=== PATIENT | male | born 1945 | race Caucasian/White ===

== ENCOUNTER → 2017-02-18 | Outpatient (REF) | payer MEDICARE ==
[2017-02-18 12:50] LABS: ALBUMIN 3.5 GM/DL (3.2-5.2); ALBUMIN/GLOBULIN RATIO 1.13 (1.00-1.93); ALKALINE PHOSPHATASE 69 U/L (45-117); ALT/SGPT 22 U/L (12-78); ANION GAP 5 MEQ/L (8-16); AST/SGOT 15 U/L (7-37); BILIRUBIN,TOTAL 0.6 MG/DL (0.2-1.0); BLOOD UREA NITROGEN 23 MG/DL (7-18); CARBON DIOXIDE LEVEL 32 MEQ/L (21-32); CHLORIDE LEVEL 104 MEQ/L (98-107); CHOLESTEROL LEVEL 129 MG/DL (<200); CREATININE FOR GFR 1.12 MG/DL (0.70-1.30); GLOMERULAR FILTRATION RATE > 60.0 (>42); GLUCOSE, FASTING 88 MG/DL (83-110); POTASSIUM SERUM 3.3 MEQ/L (3.5-5.1); SODIUM LEVEL 141 MEQ/L (136-145); TOTAL PROTEIN 6.6 GM/DL (6.4-8.2); TRIGLYCERIDES LEVEL 71 MG/DL (<150)
== END ==
LOC: M SFHCCLAY 07:37
PROVIDERS: ATTEND Family Medicine
DX: Z00.00 Encounter for general adult medical examination without abnormal findings (principal); E78.00 Pure hypercholesterolemia, unspecified; Z12.5 Encounter for screening for malignant neoplasm of prostate
CPT/HCPCS: 80053; 80061; 84443; G0103

== ENCOUNTER → 2017-05-21 | Outpatient (REF) | payer MEDICARE ==
[2017-05-21 12:21] LABS: PSA SCREENING 4.62 NG/ML (< 4.0)
== END ==
LOC: M SFHCCLAY 07:35
DX: R97.20 Elevated prostate specific antigen [PSA] (principal)
CPT/HCPCS: G0103

== ENCOUNTER → 2018-03-25 | Outpatient (REF) | payer MEDICARE ==
[2018-03-25 11:59] LABS: ALBUMIN 3.5 GM/DL (3.2-5.2); ALT/SGPT 21 U/L (12-78); BILIRUBIN,TOTAL 0.5 MG/DL (0.2-1.0); BLOOD UREA NITROGEN 21 MG/DL (7-18); CALCIUM LEVEL 8.8 MG/DL (8.8-10.2); CARBON DIOXIDE LEVEL 30 MEQ/L (21-32); CHLORIDE LEVEL 104 MEQ/L (98-107); CHOLESTEROL LEVEL 136 MG/DL (<200); CHOLESTEROL RISK RATIO 3.487 (<5); GLOMERULAR FILTRATION RATE > 60.0 (>42); GLUCOSE, FASTING 96 MG/DL (70-100); HDL CHOLESTEROL 39 MG/DL (>40); LDL CHOLESTEROL 83 MG/DL (<100); NON-HDL-C 97 MG/DL; POTASSIUM SERUM 3.4 MEQ/L (3.5-5.1); SODIUM LEVEL 139 MEQ/L (136-145); TOTAL PROTEIN 7.1 GM/DL (6.4-8.2); TRIGLYCERIDES LEVEL 69 MG/DL (<150)
== END ==
LOC: M SFHCCLAY 07:17
PROVIDERS: ATTEND Family Medicine
DX: E78.2 Mixed hyperlipidemia (principal); R97.20 Elevated prostate specific antigen [PSA]; Z00.00 Encounter for general adult medical examination without abnormal findings
CPT/HCPCS: 80053; 80061; 84443; G0103

== ENCOUNTER → 2018-04-02 | Outpatient (REF) | payer MEDICARE | LOC: M SMT 13:02 | PROVIDERS: ATTEND Nurse Practitioner Family | DX: R97.20 Elevated prostate specific antigen [PSA] (principal) ==

== ENCOUNTER → 2018-04-20 | Outpatient (CLI) | payer MEDICARE ==
--- NOTE | 2018-04-20 15:13 | REP ---
Prostate sonography: History: Elevated PSA Sonographic findings: Trans rectal prostate sonography demonstrates unremarkable seminal vesicles. Prostate gland is heterogeneously enlarged with calcifications and cystic changes noted. Glandular dimensions are measured at 4.2 x 3.5 x 5.1 cm with a calculated glandular volume of 38.6 ml. There is a 0.7 cm hypoechoic nodule on the right side of the prostate gland. Transrectal sonographic guidance provided to Dr. Pete who performed trans rectal ultrasound guided needle biopsy procedure . Electronically Signed by Vance Woodard MD 04/20/2018 03:04 P
== END ==
LOC: M SMT PRO 10:27
PROVIDERS: ATTEND Nurse Practitioner Family
DX: C61 Malignant neoplasm of prostate (principal)
CPT/HCPCS: 55700; 76872; 76942; G0416

== ENCOUNTER → 2018-05-20 | Outpatient (CLI) | payer MEDICARE ==
--- NOTE | 2018-05-21 07:11 | RADONC ---
RADIATION ONCOLOGY CONSULTATION DATE: 05/20/2018 CHART NUMBER: [id number] REFERRING PHYSICIAN: Dr. Randall Pete OTHER PHYSICIANS: Dr. Kale Zaidi DIAGNOSIS: Adenocarcinoma of the prostate, status post biopsy. STAGE: [id number], group grade 2. [place] 7, (3+4) located in the left side of the prostate with a PSA of 6.81. GROUP STAGE: IIB. ICD-10 CODE: C-61. HISTORY OF PRESENT ILLNESS: The patient is a 72-year-old male who has most recently been diagnosed as having adenocarcinoma of the prostate, [place] 7 (3+4). His prostate biopsy was performed on 04/20/2018 following a fairly marked elevation of his PSA up to 6.81. Previously his PSAs have been significantly lower in the 3-[address] Pete apparently did not feel any abnormalities on rectal examination. The tumor was staged [id number], or group stage IIB. He had a group grade of 2. His family history does not include any history of prostate cancer and the patient was not really having any urinary symptoms such as frequency, dysuria or hematuria. He had no significant obstructive symptoms. Following of the biopsy the patient was in favor of undergoing radiotherapy rather than surgery and subsequently comes to us today for radiotherapy consultation. He has an appointment to see Dr. Pete for fiduciary markers to be placed on May 25. PAST MEDICAL HEALTH: Hypertension. Hyperlipidemia. Basal cell carcinoma involving the back. Actinic keratoses. Tobacco addiction. Edema. Elevated PSA. SOCIAL HISTORY: He had a left ear lesion removed in 2009. Basal cell carcinoma removed from his back in 2004. Tonsillectomy in the . Vasectomy 1980. Bottom teeth moved in April of 2017. FAMILY HISTORY: His father is from multiple myeloma. Mother is at 91 years from hypertension. He has one brother who of renal failure. He has a son and a daughter who are alive and in fairly good health. 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 TOBACCO: He smokes one pack per day and started at 17 years of age. ALCOHOL HISTORY: Alcohol history denied. ALLERGIES: No known drug allergies. MEDICATIONS: - chlorthalidone 25 one per day - atorvastatin 20 mg one per day - quinapril 40 mg one per day - atenolol 50 mg two per day REVIEW OF SYSTEMS: HEAD: The patient denies any nausea, vomiting, headaches, focal neurologic deficit, sinusitis, dry mouth, alteration of taste. NECK: The patient denies any neck stiffness or lymphadenopathy. LUNGS: The patient denies any difficulty breathing, coughing, sputum production or hemoptysis. HEART: The patient denies any rhythmic irregularities. He has no chest pain. ABDOMEN: Denies abdominal pain or other bowel or bladder issues. GENITOURINARY (): Denies significant urinary frequency, urgency, dysuria or hematuria. NEUROLOGIC REVIEW: Denies focal, motor, neurologic deficits, seizure activity, depression. EXAMINATION FINDINGS: VITAL SIGNS: Blood pressure 138/79, oxygen saturation 95%, temperature 98.2, pulse 57, respirations 20, height 5 feet 7 inches, weight 247 pounds. HEENT: Normocephalic. EOMs intact. PERRLA. Fundi benign. LYMPHATICS: No palpable peripheral lymphadenopathy is appreciated in the cervical, supraclavicular, axillary or inguinal lymph node chains. LUNGS: Clear to auscultation and percussion. HEART: Regular without murmurs. ABDOMEN: Without evidence of hepatomegaly, masses, deep abdominal tenderness. EXTREMITIES: Without cyanosis, clubbing or edema. NEUROLOGIC EXAMINATION: Grossly physiologic and nonfocal. RECTAL EXAMINATION: No distinct abnormalities are palpable. Prostate smooth. IMPRESSION: Stage [id number], adenocarcinoma of the prostate group grade 2, PSA 6.81 and Tito 7 (3+4), group stage IIB. PLAN OF RADIOTHERAPY: Definitive. The patient is an excellent candidate for definitive local regional radiotherapy that consists of IMRT based local regional radiotherapy. He will be treated utilizing IMRT/IGRT for approximately 8-1/2 to 9 weeks. Prior to treatment delivery, localization will be accomplished upon our CT simulator and treatment portals defined by the use of multiple leaf collimators. Prior to treatment simulation, fiduciary markers are due to be placed by Dr. Pete on May 25. The indications, possible side effects as well as alternatives have been explained to the patient in detail. He understands and is willing to proceed as outlined. cc: MD Kale Mccracken MD
== END ==
LOC: M ONCR 08:55
PROVIDERS: ATTEND Radiology Radiation Oncology
DX: C61 Malignant neoplasm of prostate (principal)

== ENCOUNTER → 2018-05-25 | Outpatient (CLI) | payer MEDICARE ==
--- NOTE | 2018-05-25 13:16 | REP ---
Transrectal prostate sonography: History: Prostate cancer. Findings: Transrectal sonographic guidance is provided Dr. Pete who placed three fiducial markers. Electronically Signed by Vance Woodard MD 05/25/2018 01:08 P
== END ==
LOC: M SMT 09:09
PROVIDERS: ATTEND Urology
DX: C61 Malignant neoplasm of prostate (principal)
CPT/HCPCS: 76872; A4648

== ENCOUNTER → 2018-07-27 | Outpatient (RCR) | payer MEDICARE ==
--- NOTE | 2018-06-29 14:44 | RADONC ---
RADIATION ONCOLOGY PROGRESS NOTE DATE: 06/28/2018 CHART NUMBER: [id number] Mr. Hernandes is presently at a dose of 1440 cGy to his prostate and is tolerating treatments quite well at this point with no complaints related to his radiation therapy. He is having no urinary or bowel difficulties and no bone pain. The patient's review of systems is noncontributory. Denies nausea, vomiting, fevers, chills, night sweats, diplopia, headaches, anxiety or depression, anorexia, weight loss, visual disturbances, chest pain, urinary or bowel difficulties, bone pain, or neurological problems. PHYSICAL EXAMINATION The patient's skin is in good condition with no evidence of radiation change present. There is no moist or dry desquamation. The remainder of his physical exam remains unchanged. Mr. Hernandes is tolerating treatments quite well, and radiation will continue as scheduled.
--- NOTE | 2018-07-05 10:53 | RADONC ---
RADIATION ONCOLOGY PROGRESS NOTE: DATE: 07/05/2018 CHART NUMBER: [id number] Mr. Hernandes is presented at a dose of 2340 cGy to his prostate and is tolerating treatments quite well with no complaints related to his radiation therapy. He is having no urinary or bowel difficulties and no bone pain. REVIEW OF SYSTEMS: The patient's review of systems is noncontributory. He denies nausea, vomiting, fevers, chills, night sweats, diplopia, headaches, anxiety or depression, anorexia, weight loss, visual disturbances, chest pain, urinary or bowel difficulties, bone pain, or neurological problems. PHYSICAL EXAMINATION: The patient's skin is in excellent condition with no evidence of moist or dry desquamation. The remainder of his physical exam remains unchanged. Mr. Hernandes is tolerating treatments quite well and radiation will continue as scheduled.
--- NOTE | 2018-07-12 13:27 | RADONC ---
RADIATION ONCOLOGY PROGRESS NOTE DATE: 07/12/2018 CHART NUMBER: [id number] Mr. Hernandes with a diagnosis of adenocarcinoma of the prostate is receiving local regional radiotherapy to the prostate definitively. REVIEW OF SYSTEMS: He specifically denies any nausea, vomiting, diarrhea, dysuria, hematuria or blood per rectum. His energy level is such that he is able to maintain most day-to-day activities without any alteration of his lifestyle. Skin irritation is not an issue for him. EXAMINATION FINDINGS: The skin within the irradiated volume shows neither erythema nor desquamation. Lymphatics: No palpable peripheral lymphadenopathy is appreciated in the cervical, supraclavicular, axillary, or inguinal lymph node chains. The remainder of the physical examination is noncontributory. IMPRESSION: Tolerating therapy well. PLAN: Treatments to continue. MTDD
--- NOTE | 2018-07-21 11:12 | RADONC ---
RADIATION ONCOLOGY PROGRESS NOTE DATE: 07/20/2018 CHART #: [id number] Mr. Hernandes is presently a dose of 4140 cGy to his prostate and is tolerating treatments quite well at this point with no complaints related to his radiation therapy. He is having no urinary or bowel difficulties, except for frequent urination. He has no bone pain. REVIEW OF SYSTEMS: The patient's review of systems is positive for urinary frequency but is otherwise noncontributory. Denies nausea, vomiting, fevers, chills, night sweats, diplopia, headaches, anxiety or depression, anorexia, weight loss, visual disturbances, chest pain, urinary or bowel difficulties, bone pain, or neurological problems. PHYSICAL EXAMINATION: The patient's skin is in good condition with no evidence of radiation change present. There is no moist or dry desquamation. The remainder of his physical exam remains unchanged. Mr. Hernandes is tolerating treatments quite well and radiation will continue as scheduled.
--- NOTE | 2018-07-28 08:01 | RADONC ---
RADIATION ONCOLOGY PROGRESS NOTE: DATE: 07/26/2018 CHART NUMBER: [id number] Mr. Hernandes is presently at a dose of 4860 cGy to his prostate and is tolerating treatments quite well at this point with no complaints related to his radiation therapy other than some urinary hesitancy. REVIEW OF SYSTEMS: The patient's review of systems is positive for urinary hesitancy symptoms as well as urinary frequency but is otherwise noncontributory. He denies nausea, vomiting, fevers, chills, night sweats, diplopia, headaches, anxiety or depression, anorexia, weight loss, visual disturbances, chest pain, urinary or bowel difficulties, bone pain, or neurological problems. PHYSICAL EXAMINATION: The patient's skin is in good condition with no evidence of moist or dry desquamation. The remainder of his physical exam remains unchanged. Mr. Hernandes is tolerating treatments quite well and radiation will continue as scheduled. I asked the patient to accept a prescription for his urinary symptoms and he declined at this time.
== END ==
LOC: M ONCR 06-28 08:53
PROVIDERS: ATTEND Radiology Radiation Oncology
DX: C61 Malignant neoplasm of prostate (principal)

== ENCOUNTER 2018-08-18 09:45 | Outpatient (RCR) | payer MEDICARE ==
--- NOTE | 2018-08-02 11:26 | RADONC ---
RADIATION ONCOLOGY PROGRESS NOTE DATE: 08/02/2018 CHART NUMBER: [id number] PROGRESS NOTE Mr. Hernandes is presently at a dose of 5760 centigrade to his prostate and is tolerating treatments quite well at this point with no complaints related to his radiation therapy. He is having no urinary or bowel difficulties. No bone pain. REVIEW OF SYSTEMS: The patient's review of systems is noncontributory. Denies nausea, vomiting, fevers, chills, night sweats, diplopia, headaches, anxiety or depression, anorexia, weight loss, visual disturbances, chest pain, urinary or bowel difficulties, bone pain, or neurological problems. PHYSICAL EXAMINATION: The patient's skin is in good condition with no evidence of moist or dry desquamation. The remainder of his physical exam is unchanged. Mr. Hernandes is tolerating treatments quite well and radiation will continue as scheduled.
--- NOTE | 2018-08-09 14:00 | RADONC ---
RADIATION ONCOLOGY PROGRESS NOTE DATE: 08/09/2018 CHART NUMBER: [id number] Mr. Hernandes, with a diagnosis of adenocarcinoma of the prostate, is currently receiving local regional radiotherapy. His present dose of radiotherapy is 6660 cGy of a proposed 7920 cGy. Thus far, tolerance has been acceptable. REVIEW OF SYSTEMS: The patient specifically denies any nausea, vomiting, diarrhea, dysuria, hematuria or blood per rectum. He has some frequency. His energy level is such that he is able to maintain most day-to-day activities without any alteration of his lifestyle. Skin irritation is not reported. EXAMINATION FINDINGS: The skin within the irradiated volume looks normal without evidence of erythema and without any focal desquamation. The remainder of the physical examination is unchanged. IMPRESSION: Tolerating therapy well. PLAN: Treatments to continue. MTDD
--- NOTE | 2018-08-16 10:16 | RADONC ---
RADIATION ONCOLOGY PROGRESS NOTE DATE: 08/16/2018 CHART #: [id number] Mr. Hernandes is presently at a dose of 7560 cGy to his prostate and is tolerating treatments quite well at this point with no complaints related to his radiation therapy. He is having no significant urinary or bowel difficulties and no bone pain. REVIEW OF SYSTEMS: The patient's review of systems is noncontributory. Denies nausea, vomiting, fevers, chills, night sweats, diplopia, headaches, anxiety or depression, anorexia, weight loss, visual disturbances, chest pain, urinary or bowel difficulties, bone pain, or neurological problems. PHYSICAL EXAMINATION: The patient's skin is in good condition with no evidence of moist or dry desquamation. The remainder of his physical exam remains unchanged. Mr. Hernandes is tolerating treatments quite well and radiation will continue as scheduled.
--- NOTE | 2018-08-21 11:06 | RADONC ---
RADIATION ONCOLOGY TREATMENT SUMMARY DATE: 08/21/2018 CHART NUMBER: [id number] DIAGNOSIS: Prostate cancer. STAGE: IIB, [id number], Tito score 7 (3-4), PSA 6.81. ECOG PERFORMANCE STATUS: 0. TREATMENT SUMMARY: Mr. Hernandes is a very pleasant 72-year-old white male with the diagnosis of a [place] score 7 (3-4) adenocarcinoma of the prostate stage IIB, T1c, N0, M0 who presented to us for consideration of definitive external beam radiation therapy with IMRT/IGRT. We treated the patient to his prostate for a total dose of 7950 cGy delivered in 44 fractions of 180 cGy each over 62 elapsed days from 06/17/2018 through 08/18/2018. The patient's prostate was treated on a linear accelerator utilizing a 6 MV photon beam via IMRT/IGRT. The prostate and seminal vesicles were initially treated to a dose of 5400 cGy and we subsequently coned down to deliver an additional 2520 cGy to the prostate itself once again bringing it to a total dose of 7920 cGy. Mr. Hernandes tolerated treatments quite well with no complaints related to his radiation therapy. The patient was able to complete treatment without interruption. I have scheduled the patient to see me again in 1 month for further followup. He will also continue to be followed by his other physicians as well. cc: MD Kale Mccracken MD
== END 2018-08-27 ==
LOC: M ONCR 09:45
PROVIDERS: ATTEND Radiology Radiation Oncology
DX: C61 Malignant neoplasm of prostate (principal)

== ENCOUNTER → 2018-09-13 | Outpatient (REF) | payer MEDICARE | LOC: M LABDRAWC 11:04 | PROVIDERS: ATTEND Radiology Radiation Oncology | DX: C61 Malignant neoplasm of prostate (principal) ==

== ENCOUNTER → 2018-09-15 | Outpatient (CLI) | payer MEDICARE ==
--- NOTE | 2018-09-17 07:07 | RADONC ---
RADIATION ONCOLOGY FOLLOWUP NOTE DATE: 09/15/2018 CHART #: [id number] DIAGNOSIS: Prostate cancer. STAGE: II B, [id number], Tito score 7 (3-4), PSA 6.81. ECOG PERFORMANCE STATUS: 0. FOLLOWUP NOTE: Mr. Hernandes is a very pleasant 72-year-old white male with the diagnosis of a [place] score 7 (3-4), stage II B, T9hC1D7, adenocarcinoma of the prostate who is presenting to us today for routine followup visit 1 month post completion of external beam radiation therapy. The patient presents today reporting that he is doing quite well with no significant difficulties at this time related to his radiation therapy or disease. He does have some nocturia but that has been improving over the last 2 weeks or so. REVIEW OF SYSTEMS: The patient's review of systems is positive for his nocturia, but is otherwise noncontributory. Denies nausea, vomiting, fevers, chills, night sweats, diplopia, headaches, anxiety or depression, anorexia, weight loss, visual disturbances, chest pain, urinary or bowel difficulties, bone pain, or neurological problems. PHYSICAL EXAMINATION: The patient is a well-developed, well-nourished male in no acute distress. HEENT exam is normocephalic, atraumatic. Extraocular movements are intact. There is no palpable cervical, supraclavicular, infraclavicular, axillary, or inguinal lymphadenopathy present. Lungs are clear to auscultation and percussion. Heart has a regular rate and rhythm. Abdomen is benign with no hepatosplenomegaly, masses, or tenderness. Rectal examination reveals a normal anal sphincter tone. His prostate is smooth with no evidence of nodularity. Skeletal examination reveals no tenderness to pressure or percussion of the bony skeleton. Extremities reveal no clubbing, cyanosis, or edema. Neurologic exam is grossly intact, as is the remainder of the physical examination. ASSESSMENT: The patient is clinically ANDREA at this time and will be seen by us again in 6 months for further followup. He will also continue be followed by his other physicians as well. cc: MD Kale Mccracken MD
== END ==
LOC: M ONCR 10:26
PROVIDERS: ATTEND Radiology Radiation Oncology
DX: Z85.46 Personal history of malignant neoplasm of prostate (principal); Z92.3 Personal history of irradiation

== ENCOUNTER → 2019-01-26 | Outpatient (REF) | payer MEDICARE | LOC: M LABDRAWC 11:36 | PROVIDERS: ATTEND Radiology Radiation Oncology | DX: C61 Malignant neoplasm of prostate (principal) ==

== ENCOUNTER → 2019-02-02 | Outpatient (CLI) | payer MEDICARE ==
--- NOTE | 2019-02-02 11:42 | RADONC ---
RADIATION ONCOLOGY FOLLOWUP NOTE DATE OF SERVICE: 02/02/2019 CHART NUMBER: [id number]. DIAGNOSIS: Prostate cancer. STAGE: IIB, E9pB2T9, [place] score 7 (3 + 4), PSA 6.81. ECOG PERFORMANCE STATUS: 0. FOLLOWUP NOTE: Mr. Hernandes is a very pleasant 73-year-old man with a diagnosis of a [place] 7 (3 + 4), stage IIB, [id number], adenocarcinoma of the prostate who presents today for routine visit after having completed a course of radiotherapy ending on 08/18/2018. Since this time, he has been doing well, and his most recent PSA was 0.01. REVIEW OF SYSTEMS: He denies any nausea, vomiting, diarrhea, dysuria, hematuria, or blood per rectum. He also denies fevers, chills, night sweats, diplopia, headache, anxiety, depression, anorexia, weight loss, visual disturbances, chest pain, or other urinary or bowel difficulties, bone pain, or neurologic problems. EXAMINATION FINDINGS: The skin within the irradiated volume looks normal. There is no palpable peripheral lymphadenopathy. Lungs are clear. Heart: Regular without murmurs. Abdomen: Without evidence of hepatomegaly, masses, deep abdominal tenderness. Rectal examination reveals no perianal abnormalities. Prostate smooth with no nodularity. Skeletal system without percussive tenderness. Extremities: Without cyanosis, clubbing, or edema. Neurologic examination: Grossly physiologic. IMPRESSION: The patient is clinically ANDREA at this time with a PSA of 0.01. PLAN: We would like to see him on a p.r.n. basis, and he was instructed to return to his referring physicians as per their directions and instructions. Thank you for allowing us the opportunity of participation in the management of this very fine gentleman.
== END ==
LOC: M ONCR 10:35
PROVIDERS: ATTEND Radiology Radiation Oncology
DX: C61 Malignant neoplasm of prostate (principal)

== ENCOUNTER → 2019-04-18 | Outpatient (REF) | payer MEDICARE ==
[2019-04-18 12:05] LABS: ALBUMIN 3.4 GM/DL (3.2-5.2); ALT/SGPT 18 U/L (12-78); BILIRUBIN,TOTAL 0.6 MG/DL (0.2-1.0); BLOOD UREA NITROGEN 21 MG/DL (7-18); CALCIUM LEVEL 9.1 MG/DL (8.8-10.2); CARBON DIOXIDE LEVEL 31 MEQ/L (21-32); CHLORIDE LEVEL 102 MEQ/L (98-107); CHOLESTEROL LEVEL 130 MG/DL (<200); CHOLESTEROL RISK RATIO 3.421 (<5); CREATININE FOR GFR 1.02 MG/DL (0.70-1.30); GLOMERULAR FILTRATION RATE > 60.0 (>42); GLUCOSE, FASTING 88 MG/DL (70-100); HDL CHOLESTEROL 38 MG/DL (>40); LDL CHOLESTEROL 71 MG/DL (<100); NON-HDL-C 92 MG/DL; POTASSIUM SERUM 3.5 MEQ/L (3.5-5.1); SODIUM LEVEL 141 MEQ/L (136-145); TOTAL PROTEIN 6.8 GM/DL (6.4-8.2); TRIGLYCERIDES LEVEL 104 MG/DL (<150)
== END ==
LOC: M SFHCCLAY 08:17
PROVIDERS: ATTEND Family Medicine
DX: I10 Essential (primary) hypertension (principal); E78.00 Pure hypercholesterolemia, unspecified

== ENCOUNTER → 2019-09-16 | Outpatient (REF) | payer MEDICARE ==
[2019-09-16 12:07] LABS: ALBUMIN 3.4 GM/DL (3.2-5.2); ALT/SGPT 17 U/L (12-78); BILIRUBIN,TOTAL 0.6 MG/DL (0.2-1.0); BLOOD UREA NITROGEN 20 MG/DL (7-18); CALCIUM LEVEL 9.2 MG/DL (8.8-10.2); CARBON DIOXIDE LEVEL 31 MEQ/L (21-32); CHLORIDE LEVEL 104 MEQ/L (98-107); CREATININE FOR GFR 1.01 MG/DL (0.70-1.30); GLOMERULAR FILTRATION RATE > 60.0 (>42); GLUCOSE, FASTING 86 MG/DL (70-100); POTASSIUM SERUM 3.5 MEQ/L (3.5-5.1); PROSTATIC SPECIFIC AG MONITOR 0.04 NG/ML (< 4.00); SODIUM LEVEL 140 MEQ/L (136-145); TOTAL PROTEIN 6.8 GM/DL (6.4-8.2)
== END ==
LOC: M SFHCCLAY 07:20
PROVIDERS: ATTEND Family Medicine
DX: I10 Essential (primary) hypertension (principal); C61 Malignant neoplasm of prostate

== ENCOUNTER 2019-11-22 09:28 | Day surgery (SDC) | payer MEDICARE ==
[~2019-11-22] VITALS: Ht 170.2 cm; Wt 110.7 kg
[~2019-11-22 09:28] MED LIST: ATEN50TA2 PO; ATOR1TAB21 PO; CHLO125TA PO; QUIN40TA26 PO; TAMS1CAP17 PO
[2019-11-22] MEDS ORDERED: NS 1,000 ML IV ONE (10:30)
[2019-11-22 14:15] VITALS: BP 141/71
--- NOTE | 2019-12-07 11:30 | ROOR ---
Patient Name: Raymond Hernandes Procedure Date: 11/22/2019 1:20 PM Date of : 1945 Age: 74 Room: [facility] Gender: Male Note Status: Finalized Procedure: Colonoscopy Indications: Screening for colorectal malignant neoplasm, Last colonoscopy: May 2010 Providers: Dakota Ramirez MD Referring MD: ARLIN Isaac pa-c Requesting Provider: Medicines: Monitored Anesthesia Care Complications: No immediate complications. Procedure: Pre-Anesthesia Assessment: - Prior to the procedure, a History and Physical was performed, and patient medications and allergies were reviewed. The patient is competent. The risks and benefits of the procedure and the sedation options and risks were discussed with the patient. All questions were answered and informed consent was obtained. Patient identification and proposed procedure were verified by the physician, the nurse and the anesthesiologist in the procedure room. Mental Status Examination: alert and oriented. Prophylactic Antibiotics: The patient does not require prophylactic antibiotics. Prior Anticoagulants: The patient has taken no previous anticoagulant or antiplatelet agents. ASA Grade Assessment: III - A patient with severe systemic disease. After reviewing the risks and benefits, the patient was deemed in satisfactory condition to undergo the procedure. The anesthesia plan was to use monitored anesthesia care (MAC). Immediately prior to administration of medications, the patient was re-assessed for adequacy to receive sedatives. The heart rate, respiratory rate, oxygen saturations, blood pressure, adequacy of pulmonary ventilation, and response to care were monitored throughout the procedure. The physical status of the patient was re-assessed after the procedure. The Colonoscope was introduced through the anus and advanced to the cecum, identified by appendiceal orifice and ileocecal valve. The colonoscopy was performed without difficulty. The patient tolerated the procedure well. The quality of the bowel preparation was excellent. Findings: The perianal and digital rectal examinations were normal. Many medium-mouthed diverticula were found in the sigmoid colon and descending colon. The mucosa vascular pattern in the rectum was locally decreased. Impression: - Diverticulosis in the sigmoid colon and in the descending colon. - Decreased mucosa vascular pattern in the rectum. Changes noted consistent with prior radiation therapy. - No specimens collected. Recommendation: - Discharge patient to home. - Resume previous diet. - Continue present medications. - Repeat colonoscopy in 10 years for screening purposes. Dakota Ramirez MD Dakota Ramirez MD 11/22/2019 2:00:14 PM Number of Addenda: 0 Note Initiated On: 11/22/2019 1:20 PM Estimated Blood Loss: Estimated blood loss: none.
--- NOTE | 2019-12-20 14:56 | ECGEPIP ---
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
== END 2019-11-22 14:28 | disposition home or self-care (01) ==
LOC: M OPP 09:28
PROVIDERS: ATTEND Surgery
DX: Z12.11 Encounter for screening for malignant neoplasm of colon (principal); K57.30 Diverticulosis of large intestine without perforation or abscess without bleeding; F17.210 Nicotine dependence, cigarettes, uncomplicated; Z85.46 Personal history of malignant neoplasm of prostate; Z92.3 Personal history of irradiation; Z79.899 Other long term (current) drug therapy

== ENCOUNTER → 2020-05-02 | Outpatient (REF) | payer MEDICARE ==
[2020-05-02 11:38] LABS: BASO # 0.1 10^3/uL (0.0-0.2); BASO % 0.8 % (0.0-1.0); EOS # 0.7 10^3/uL (0.0-0.5); EOS % 6.5 % (0.0-3.0); HEMATOCRIT 43.3 % (42.0-52.0); LYMPH # 2.1 10^3/uL (1.5-5.0); LYMPH % 19.8 % (24.0-44.0); MEAN CORPUSCULAR HGB CONC 32.3 g/dl (32.0-36.5); MEAN CORPUSCULAR VOLUME 95.8 fl (80.0-96.0); MONO # 1.1 10^3/uL (0.0-0.8); MONO % 10.3 % (0.0-5.0); NEUTROPHILS # 6.6 10^3/uL (1.5-8.5); NEUTROPHILS % 62.2 % (36.0-66.0); PLATELET COUNT, AUTOMATED 294 10^3/uL (150-450); RED BLOOD COUNT 4.52 10^6/uL (4.30-6.10)
[2020-05-02 11:59] LABS: WHITE BLOOD COUNT 10.5 10^3/uL (4.0-10.0)
[2020-05-02 12:13] LABS: ALBUMIN 3.6 GM/DL (3.2-5.2); ALT/SGPT 19 U/L (12-78); BILIRUBIN,TOTAL 0.3 MG/DL (0.2-1.0); BLOOD UREA NITROGEN 26 MG/DL (7-18); CALCIUM LEVEL 9.4 MG/DL (8.8-10.2); CARBON DIOXIDE LEVEL 32 MEQ/L (21-32); CHLORIDE LEVEL 105 MEQ/L (98-107); CHOLESTEROL LEVEL 135 MG/DL (<200); CHOLESTEROL RISK RATIO 3.139 (<5); CREATININE FOR GFR 1.21 MG/DL (0.70-1.30); GLOMERULAR FILTRATION RATE > 60.0 (>42); GLUCOSE, FASTING 84 MG/DL (70-100); HDL CHOLESTEROL 43 MG/DL (>40); LDL CHOLESTEROL 79 MG/DL (<100); NON-HDL-C 92 MG/DL; POTASSIUM SERUM 3.8 MEQ/L (3.5-5.1); PROSTATIC SPECIFIC AG MONITOR 0.07 NG/ML (< 4.00); SODIUM LEVEL 142 MEQ/L (136-145); TRIGLYCERIDES LEVEL 65 MG/DL (<150)
== END ==
LOC: M SFHCCLAY 07:36
PROVIDERS: ATTEND Physician Assistant
DX: I10 Essential (primary) hypertension (principal); C61 Malignant neoplasm of prostate

== ENCOUNTER → 2021-06-19 | Outpatient (REF) | payer MEDICARE | LOC: M SFHCCLAY 08:44 | PROVIDERS: ATTEND Urology | DX: C61 Malignant neoplasm of prostate (principal) ==

== ENCOUNTER → 2021-06-21 | Outpatient (REF) | payer MEDICARE ==
[2021-06-21 11:41] LABS: BASO # 0.1 10^3/uL (0.0-0.2); BASO % 0.7 % (0.0-1.0); EOS # 0.7 10^3/uL (0.0-0.5); EOS % 6.8 % (0.0-3.0); HEMATOCRIT 43.2 % (42.0-52.0); HEMOGLOBIN 14.3 g/dl (13.5-17.5); LYMPH # 2.1 10^3/uL (1.5-5.0); LYMPH % 21.2 % (24.0-44.0); MEAN CORPUSCULAR HEMOGLOBIN 31.3 pg (27.0-33.0); MEAN CORPUSCULAR HGB CONC 33.1 g/dl (32.0-36.5); MEAN CORPUSCULAR VOLUME 94.5 fl (80.0-96.0); MONO # 0.9 10^3/uL (0.0-0.8); MONO % 9.5 % (2.0-8.0); NEUTROPHILS % 61.5 % (36.0-66.0); PLATELET COUNT, AUTOMATED 259 10^3/uL (150-450); RED BLOOD COUNT 4.57 10^6/uL (4.30-6.10); WHITE BLOOD COUNT 9.7 10^3/uL (4.0-10.0)
[2021-06-21 11:54] LABS: ALBUMIN 3.5 GM/DL (3.2-5.2); BILIRUBIN,TOTAL 0.5 MG/DL (0.2-1.0); CALCIUM LEVEL 8.9 MG/DL (8.8-10.2); CHOLESTEROL RISK RATIO 3.358 (<5); CREATININE FOR GFR 1.28 MG/DL (0.70-1.30); GLOMERULAR FILTRATION RATE 58.5 (>42); POTASSIUM SERUM 4.1 MEQ/L (3.5-5.1); TOTAL PROTEIN 6.9 GM/DL (6.4-8.2)
== END ==
LOC: M SFHCCLAY 07:33
PROVIDERS: ATTEND Nurse Practitioner Family
DX: D72.821 Monocytosis (symptomatic) (principal)

== ENCOUNTER → 2022-06-17 | Outpatient (REF) | payer MEDICARE ==
[2022-06-17 19:08] LABS: BLOOD UREA NITROGEN 28 MG/DL (9-23); CARBON DIOXIDE LEVEL 30 MMOL/L (20-31); CHLORIDE LEVEL 104 MMOL/L (98-107); CHOLESTEROL LEVEL 128 MG/DL (<200); CHOLESTEROL RISK RATIO 2.88 (<5); CREATININE FOR GFR 1.09 MG/DL (0.70-1.30); GLOMERULAR FILTRATION RATE > 60.0 (>42); GLUCOSE, FASTING 76 MG/DL (74-106); HDL CHOLESTEROL 44.3 MG/DL (>40); LDL CHOLESTEROL 68.7 MG/DL (<100); NON-HDL-C 83.7 MG/DL; POTASSIUM SERUM 3.5 MMOL/L (3.5-5.1); SODIUM LEVEL 140 MMOL/L (136-145); TRIGLYCERIDES LEVEL 75 MG/DL (<150)
== END ==
LOC: M SFHCCLAY 07:55
PROVIDERS: ATTEND Urology
DX: C61 Malignant neoplasm of prostate (principal)

== ENCOUNTER → 2023-06-22 | Outpatient (REF) | payer MEDICARE ==
[2023-06-22 12:30] LABS: BLOOD UREA NITROGEN 31 MG/DL (9-23); CALCIUM LEVEL 9.3 MG/DL (8.3-10.6); CARBON DIOXIDE LEVEL 34 MMOL/L (20-31); CHLORIDE LEVEL 104 MMOL/L (98-107); CHOLESTEROL LEVEL 126 MG/DL (<200); CHOLESTEROL RISK RATIO 3.08 (<5); CREATININE FOR GFR 1.17 MG/DL (0.70-1.30); GLOMERULAR FILTRATION RATE > 60.0 (>42); GLUCOSE, FASTING 91 MG/DL (74-106); HDL CHOLESTEROL 40.8 MG/DL (>40); LDL CHOLESTEROL 70.6 MG/DL (<100); NON-HDL-C 85.2 MG/DL; POTASSIUM SERUM 3.6 MMOL/L (3.5-5.1); PROSTATIC SPECIFIC AG MONITOR 0.08 NG/ML (< 4.00); SODIUM LEVEL 141 MMOL/L (136-145); TRIGLYCERIDES LEVEL 73 MG/DL (<150)
== END ==
LOC: M SFHCCLAY 07:26
PROVIDERS: ATTEND Nurse Practitioner Family
DX: Z85.46 Personal history of malignant neoplasm of prostate (principal); I10 Essential (primary) hypertension; E78.2 Mixed hyperlipidemia

== ENCOUNTER → 2023-06-23 | Outpatient (REF) | payer MEDICARE | LOC: M SFHCCLAY 08:54 | PROVIDERS: ATTEND Nurse Practitioner Family | DX: Z00.00 Encounter for general adult medical examination without abnormal findings (principal) ==

== ENCOUNTER → 2024-05-27 | Outpatient (REF) | payer MEDICARE ==
[2024-05-27 12:35] LABS: ALBUMIN 3.5 G/DL (3.2-5.2); ALKALINE PHOSPHATASE 72 U/L (40-129); ALT/SGPT 17 U/L (7.0-40); AST/SGOT 13 U/L (<34); BILIRUBIN,TOTAL 0.6 MG/DL (0.3-1.2); BLOOD UREA NITROGEN 24 MG/DL (9-23); CALCIUM LEVEL 9.4 MG/DL (8.3-10.6); CARBON DIOXIDE LEVEL 32 MMOL/L (20-31); CHLORIDE LEVEL 104 MMOL/L (98-107); CHOLESTEROL LEVEL 125 MG/DL (<200); CHOLESTEROL RISK RATIO 3.12 (<5); CREATININE FOR GFR 1.06 MG/DL (0.70-1.30); GLOMERULAR FILTRATION RATE > 60.0 (>42); GLUCOSE, FASTING 83 MG/DL (74-106); LDL CHOLESTEROL 65.6 MG/DL (<100); POTASSIUM SERUM 3.9 MMOL/L (3.5-5.1); PROSTATIC SPECIFIC AG MONITOR 0.11 NG/ML (< 4.00); SODIUM LEVEL 141 MMOL/L (136-145); TOTAL PROTEIN 6.7 G/DL (5.7-8.2); TRIGLYCERIDES LEVEL 97 MG/DL (<150)
[2024-05-27 12:55] LABS: HEMOGLOBIN A1c 5.2 % (4.0-6.0)
== END ==
LOC: M SFHCCLAY 07:37
PROVIDERS: ATTEND Nurse Practitioner Family
DX: Z00.00 Encounter for general adult medical examination without abnormal findings (principal); R97.20 Elevated prostate specific antigen [PSA]; E78.00 Pure hypercholesterolemia, unspecified

== ENCOUNTER → 2024-11-29 | Outpatient (REF) | payer MEDICARE ==
[2024-12-05 18:38] LABS: PANCREATIC ELASTASE STOOL 105 mcg/g (>200)
[2024-12-06 17:58] LABS: CALPROTECTIN STOOL 91 mcg/g (<50)
== END ==
LOC: M SFHCCLAY 11:44
PROVIDERS: ATTEND Physician Assistant
DX: R19.7 Diarrhea, unspecified (principal)